=== PATIENT | female | born 1995 | race Two or more races ===

== ENCOUNTER 2018-09-12 14:15 | Inpatient (IN) | payer OTHER ==
[~2018-09-12] VITALS: Ht 152.4 cm; Wt 62.6 kg
== END 2018-10-06 14:01 | disposition home or self-care (01) | DRG 785 ==
LOC: O/R 14:15 → LDR 10-03 09:44 → OB/GYN 10-03 09:44 → O/R 10-03 21:52 → OB/GYN 10-03 22:10
PROVIDERS: ADMIT Obstetrics & Gynecology
PROC: 0UL70ZZ Occlusion of Bilateral Fallopian Tubes, Open Approach (ICD-10-PCS; 2018-10-03)
PROC: 3E0P7VZ Introduction of Hormone into Female Reproductive, Via Natural or Artificial Opening (ICD-10-PCS; 2018-10-03)
PROC: 3E033VJ Introduction of Other Hormone into Peripheral Vein, Percutaneous Approach (ICD-10-PCS; 2018-10-03)
PROC: 4A1HXCZ Monitoring of Products of Conception, Cardiac Rate, External Approach (ICD-10-PCS; 2018-10-03)
PROC: 10D00Z1 Extraction of Products of Conception, Low, Open Approach (ICD-10-PCS; principal; 2018-10-03 18:00)
DX: O82 Encounter for cesarean delivery without indication (principal); O61.0 Failed medical induction of labor; Z3A.39 39 weeks gestation of pregnancy; Z37.0 Single live birth; Z30.2 Encounter for sterilization